=== PATIENT | male | born 1955 | race African-American/Black ===

== ENCOUNTER 2021-01-06 05:18 | Inpatient (IN) | payer MEDICAID ==
[2021-01-06] VITALS (8 sets, daily range): BP systolic 139–166; BP diastolic 95–107
[~2021-01-06] VITALS: Ht 167.6 cm; Wt 71.2 kg
[2021-01-06] MEDS ORDERED: MAGNESIUM 2 G PREMIX 50 ML IV STA (05:35)
[2021-01-06] MEDS ORDERED: ALBUTEROL (0.083%) 2.5MG/3ML NEB HHN STA (05:35)
[2021-01-06] MEDS ORDERED: IPRATROPIUM BROMIDE (0.02%) 0.5MG/2.5ML NEB HHN STA (05:35)
[2021-01-06] MEDS ORDERED: METHYLPREDNISOLONE SOD SUCC 125 MG/2 ML VIAL IV STA (05:35)
[2021-01-06 06:08] LABS: BASOPHILS % 0.2 % (0.0-2.0); EOSINOPHILS % 0.6 % (0.0-5.0); HEMOGLOBIN. 13.4 g/dL (14.0-18.0); MEAN CORPUSCULAR HEMOGLOBIN 31.2 pg (28.0-32.0); MEAN PLATELET VOLUME 7.4 fl (7.4-10.4); MONOCYTES % 4.4 % (2.0-8.0); NEUTROPHILS % 81.8 % (40.0-76.0); PLATELET 362 x1000/uL (130-400)
[2021-01-06 06:16] LABS: CHLORIDE 105 mEq/L (98-107)
[2021-01-06] MEDS ORDERED: IPRATROPIUM/ALBUTEROL 0.5-3(2.5)MG/3ML NEB HHN SCH (12:00)
[2021-01-06] MEDS: AMLODIPINE 10MG TABLET PO SCH (12:24)
[2021-01-06] MEDS: PIPERACILLIN/TAZOBACTAM 3.375 G in DEXTROSE 5% WATER 50 ML IV SCH ×2 (13:03→21:22)
[2021-01-06] MEDS: METHYLPREDNISOLONE SOD SUCC 40 MG/ML VIAL IV SCH ×2 (13:03→21:21)
[2021-01-06] MEDS: LORATADINE 10MG TABLET PO SCH (13:04)
[2021-01-06 14:10] LABS: *COCAINE SCREEN URINE NEGATIVE (NEGATIVE); METHADONE URINE SCREEN NEGATIVE (NEGATIVE); OPIATES URINE SCREEN NEGATIVE (NEGATIVE)
[2021-01-06 14:11] LABS: *AMPHETAMINES SCREEN URINE NEGATIVE (NEGATIVE); *BARBITURATES SCREEN URINE NEGATIVE (NEGATIVE); *BENZODIAZEPINES SCREEN URINE NEGATIVE (NEGATIVE); CANNABINOID URINE SCREEN NEGATIVE (NEGATIVE); PHENCYCLIDINE URINE SCREEN NEGATIVE (NEGATIVE)
[2021-01-06] MEDS: IPRATROPIUM BROMIDE (0.02%) 0.5MG/2.5ML NEB HHN SCH ×2 (15:43→20:26)
[2021-01-06] MEDS: FAMOTIDINE 20MG TABLET PO SCH (21:21)
[2021-01-06] MEDS: IPRATROPIUM/ALBUTEROL 0.5-3(2.5)MG/3ML NEB HHN PRN (23:04)
[2021-01-07] VITALS (12 sets, daily range): BP systolic 126–160; BP diastolic 62–108
[2021-01-07] MEDS: IPRATROPIUM BROMIDE (0.02%) 0.5MG/2.5ML NEB HHN SCH ×6 (00:26→21:04)
[2021-01-07] MEDS: IPRATROPIUM/ALBUTEROL 0.5-3(2.5)MG/3ML NEB HHN PRN (03:00)
[2021-01-07] MEDS: PIPERACILLIN/TAZOBACTAM 3.375 G in DEXTROSE 5% WATER 50 ML IV SCH ×3 (06:33→21:49)
[2021-01-07] MEDS: METHYLPREDNISOLONE SOD SUCC 40 MG/ML VIAL IV SCH ×3 (06:33→21:49)
[2021-01-07 07:16] LABS: HEMATOCRIT. 39.6 % (42.0-52.0); HEMOGLOBIN. 12.8 g/dL (14.0-18.0); LYMPHOCYTES % 15.4 % (20.0-50.0); MEAN CORPUSCULAR HEMOGLOBIN 30.1 pg (28.0-32.0); MEAN CORPUSCULAR VOLUME 93.1 fL (80.0-94.0); MEAN PLATELET VOLUME 7.7 fl (7.4-10.4); MONOCYTES % 6.2 % (2.0-8.0); NEUTROPHILS % 78.4 % (40.0-76.0); PLATELET 353 x1000/uL (130-400); RED BLOOD CELL COUNT 4.26 mill/uL (4.7-6.1); RED CELL DISTRIBUTION WIDTH 14.4 % (11.6-14.6)
[2021-01-07] MEDS: LORATADINE 10MG TABLET PO SCH (09:28)
[2021-01-07] MEDS: AMLODIPINE 10MG TABLET PO SCH (09:29)
[2021-01-07] MEDS: ENOXAPARIN 40MG/0.4ML SYR SUBCUT SCH (10:53)
[2021-01-07 12:12] LABS: BG BASE EXCESS -1.7 mmol/L (-2.0-2.0); BG CARBOXYHEMOGLOBIN 0.5 % (0.5-1.5); BG DEOXYHEMOGLOBIN 6.4 % (0.0-5.0); BG FRACTION INSPIRED OXYGEN 21; BG HCO3 ACT 22.6 mmol/L (22.0-26.0); BG METHEMOGLOBIN 0.3 % (0.0-1.5); BG OXYGEN SATURATION 93.5 % (92.0-98.5); BG OXYHEMOGLOBIN 92.8 % (94.0-97.0); BG PH 7.404 (7.350-7.450); BG SAMPLE SITE RIGHT RADIAL; BG VENT MODE ROOM AIR
[2021-01-07] MEDS ORDERED: CLAR10 PO (12:25)
[2021-01-07] MEDS ORDERED: AMLO10TA80 PO (12:25)
[2021-01-07] MEDS ORDERED: ALBU18HF2 IH (12:25)
[2021-01-07] MEDS ORDERED: FLUT1DIS3 INH (12:25)
[2021-01-07] MEDS ORDERED: IPRA3AMP9 NEB (12:25)
[2021-01-07] MEDS ORDERED: CEPH500C2 MT (12:25)
[2021-01-07] MEDS ORDERED: TUSSL PO (12:25)
[2021-01-07] MEDS: CLONIDINE 0.1MG TABLET PO PRN (19:03)
[2021-01-07] MEDS: FAMOTIDINE 20MG TABLET PO SCH (21:50)
[2021-01-07] MEDS: GUAIFENESIN-DM 200MG-20MG/10ML UDC PO PRN (22:12)
[2021-01-08] VITALS (9 sets, daily range): BP systolic 135–170; BP diastolic 89–123
[2021-01-08] MEDS: IPRATROPIUM BROMIDE (0.02%) 0.5MG/2.5ML NEB HHN SCH ×6 (00:23→21:14)
[2021-01-08] MEDS: CLONIDINE 0.1MG TABLET PO PRN ×3 (01:43→21:32)
[2021-01-08] MEDS: IPRATROPIUM/ALBUTEROL 0.5-3(2.5)MG/3ML NEB HHN PRN (01:46)
[2021-01-08] MEDS: GUAIFENESIN-DM 200MG-20MG/10ML UDC PO PRN (04:49)
[2021-01-08] MEDS: METHYLPREDNISOLONE SOD SUCC 40 MG/ML VIAL IV SCH ×3 (06:00→21:32)
[2021-01-08] MEDS: PIPERACILLIN/TAZOBACTAM 3.375 G in DEXTROSE 5% WATER 50 ML IV SCH ×3 (06:00→21:32)
[2021-01-08] MEDS: ENOXAPARIN 40MG/0.4ML SYR SUBCUT SCH (09:10)
[2021-01-08] MEDS: LORATADINE 10MG TABLET PO SCH (09:11)
[2021-01-08] MEDS: AMLODIPINE 10MG TABLET PO SCH (09:13)
[2021-01-08] MEDS: FAMOTIDINE 20MG TABLET PO SCH (21:32)
[2021-01-09] VITALS: BP 128/84
[2021-01-09] MEDS: IPRATROPIUM BROMIDE (0.02%) 0.5MG/2.5ML NEB HHN SCH ×3 (00:36→08:36)
[2021-01-09 04:00] VITALS: BP 122/78
[2021-01-09] MEDS: PIPERACILLIN/TAZOBACTAM 3.375 G in DEXTROSE 5% WATER 50 ML IV SCH (06:26)
[2021-01-09] MEDS: METHYLPREDNISOLONE SOD SUCC 40 MG/ML VIAL IV SCH (06:26)
[2021-01-09 08:00] VITALS: BP 131/97
[2021-01-09] MEDS: LORATADINE 10MG TABLET PO SCH (08:06)
[2021-01-09] MEDS: ENOXAPARIN 40MG/0.4ML SYR SUBCUT SCH (08:06)
[2021-01-09] MEDS: AMLODIPINE 10MG TABLET PO SCH (08:06)
[2021-01-09 12:00] VITALS: BP 145/96
[2021-01-09] MEDS: IPRATROPIUM/ALBUTEROL 0.5-3(2.5)MG/3ML NEB HHN SCH (15:02)
[2021-01-09 16:00] VITALS: BP 166/108
[2021-01-09] MEDS: CLONIDINE 0.1MG TABLET PO PRN ×2 (17:54→21:16)
[2021-01-09] MEDS: PREDNISONE 20MG TABLET PO SCH (17:56)
[2021-01-09 20:00] VITALS: BP 152/119
[2021-01-09] MEDS: FAMOTIDINE 20MG TABLET PO SCH (21:16)
[2021-01-10] VITALS: BP 144/109
[2021-01-10 04:00] VITALS: BP 127/90
[2021-01-10] MEDS: IPRATROPIUM/ALBUTEROL 0.5-3(2.5)MG/3ML NEB HHN SCH ×2 (07:37→11:41)
[2021-01-10 08:00] VITALS: BP 133/84
[2021-01-10] MEDS: AMLODIPINE 10MG TABLET PO SCH (08:38)
[2021-01-10] MEDS: PREDNISONE 20MG TABLET PO SCH ×2 (08:38→16:42)
[2021-01-10] MEDS: ENOXAPARIN 40MG/0.4ML SYR SUBCUT SCH (08:38)
[2021-01-10] MEDS: LORATADINE 10MG TABLET PO SCH (08:38)
[2021-01-10 12:15] VITALS: BP 149/95
[2021-01-10 16:00] VITALS: BP 150/81
[2021-01-10 20:20] VITALS: BP 145/96
[2021-01-10] MEDS: FAMOTIDINE 20MG TABLET PO SCH (20:55)
[2021-01-11 00:28] VITALS: BP 139/91
[2021-01-11 03:50] VITALS: BP 132/90
[2021-01-11 08:00] VITALS: BP 180/128
[2021-01-11] MEDS: AMLODIPINE 10MG TABLET PO SCH (08:02)
[2021-01-11] MEDS: PREDNISONE 20MG TABLET PO SCH ×2 (08:02→16:04)
[2021-01-11] MEDS: ENOXAPARIN 40MG/0.4ML SYR SUBCUT SCH (08:02)
[2021-01-11] MEDS: LORATADINE 10MG TABLET PO SCH (08:02)
[2021-01-11] MEDS: CLONIDINE 0.1MG TABLET PO PRN ×2 (08:03→15:49)
[2021-01-11] MEDS: IPRATROPIUM/ALBUTEROL 0.5-3(2.5)MG/3ML NEB HHN SCH ×3 (08:34→20:43)
[2021-01-11 09:07] VITALS: BP 126/91
[2021-01-11 15:43] VITALS: BP 163/110
[2021-01-11 20:00] VITALS: BP 136/89
[2021-01-11] MEDS: FAMOTIDINE 20MG TABLET PO SCH (21:11)
[2021-01-12 00:18] VITALS: BP 138/90
[2021-01-12] MEDS: IPRATROPIUM/ALBUTEROL 0.5-3(2.5)MG/3ML NEB HHN SCH ×3 (01:40→15:00)
[2021-01-12 04:23] VITALS: BP 134/84
[2021-01-12 08:00] VITALS: BP 149/96
[2021-01-12] MEDS: LORATADINE 10MG TABLET PO SCH (08:09)
[2021-01-12] MEDS: PREDNISONE 20MG TABLET PO SCH (08:09)
[2021-01-12] MEDS: ENOXAPARIN 40MG/0.4ML SYR SUBCUT SCH (08:09)
[2021-01-12] MEDS: AMLODIPINE 10MG TABLET PO SCH (08:10)
[2021-01-12 12:00] VITALS: BP 151/99
[2021-01-12 15:23] VITALS: BP 151/99
== END 2021-01-12 15:45 | disposition home or self-care (01) | DRG 720 ==
LOC: ER 05:18 → 5EST 07:35 → EDBEDREQTM 07:40 → EDBEDREQ 07:40 → ENRESERV 08:31 → 5EST 12:29 → 6WST 01-08 11:03
PROVIDERS: ADMIT Internal Medicine; ATTEND Internal Medicine
PROC: 5A09357 Assistance with Respiratory Ventilation, Less than 24 Consecutive Hours, Continuous Positive Airway Pressure (ICD-10-PCS; principal; 2021-01-06)
DX: A41.9 Sepsis, unspecified organism (principal); N17.0 Acute kidney failure with tubular necrosis; J96.01 Acute respiratory failure with hypoxia; J44.0 Chronic obstructive pulmonary disease with (acute) lower respiratory infection; J45.901 Unspecified asthma with (acute) exacerbation; E87.1 Hypo-osmolality and hyponatremia; J18.9 Pneumonia, unspecified organism; J44.1 Chronic obstructive pulmonary disease with (acute) exacerbation; I10 Essential (primary) hypertension; Z60.2 Problems related to living alone; Z20.822 Contact with and (suspected) exposure to COVID-19; F17.210 Nicotine dependence, cigarettes, uncomplicated; Z86.73 Personal history of transient ischemic attack (TIA), and cerebral infarction without residual deficits; Z71.6 Tobacco abuse counseling
CPT/HCPCS: 36415; 36600; 71045; 80048; 80053; 80305; 82375; 82805; 83880; 84484; 85025; 87426; 87804; 93005; 94618; 94640; 94644; 94660; 99291; J1650; J2543; J2920; J2930; J3475; J7060; J7512